=== PATIENT | male | born 1955 | race Caucasian/White ===

== ENCOUNTER 2017-09-07 14:40 | Inpatient (IN) | payer OTHER ==
[~2017-09-07] VITALS: Ht 175.3 cm; Wt 98.5 kg
--- NOTE | 2017-09-07 15:02 | PHYS DOC ---
Past Medical History Past Medical History: Diabetes-Type II, High Cholesterol, Hypertension Past Surgical History: No Surgical History Alcohol Use: None Drug Use: None Adult General Chief Complaint Chief Complaint: ANKLE PROBLEM HPI HPI Patient is a 61 year old -N[place]alese Nepalese male who presents with left ankle pain. He slipped and fell. He states his left ankle was twisted inside and he reached down and straightened it out. He states it was "freaking". He was brought in by EMS and it was splinted. He denies hitting his head or losing consciousness. He denies any hip or knee pain. States his pains only his left ankle. States he has a history of hypertension and diabetes. States his primary care physicians Dr. Lutz. Review of Systems Review of Systems Constitutional: Denies fever or chills [] Eyes: Denies change in visual acuity, redness, or eye pain [] HENT: Denies nasal congestion or sore throat [] Respiratory: Denies cough or shortness of breath [] Cardiovascular: No additional information not addressed in HPI [] GI: Denies abdominal pain, nausea, vomiting, bloody stools or diarrhea [] : Denies dysuria or hematuria [] Musculoskeletal: Denies back pain, positive for left ankle pain. Integument: Denies rash or skin lesions [] Neurologic: Denies headache, focal weakness or sensory changes [] Endocrine: Denies polyuria or polydipsia [] Current Medications Current Medications Current Medications Medications (Trade) Dose Ordered Sig/Ksenia Start Time Stop Time Status Last Admin Dose Admin Acetaminophen/ Hydrocodone Bitart (Lortab 5/325) 2 tab 1X ONCE 09/07/17 16:45 09/07/17 16:46 DC 09/07/17 16:52 2 TAB Morphine Sulfate 2 mg PRN Q2HR PRN 09/07/17 17:45 09/08/17 17:44 Ondansetron HCl (Zofran) 4 mg PRN Q8HRS PRN 09/07/17 17:45 09/08/17 17:44 Allergies Allergies Allergies Coded Allergies Type Severity Reaction Last Updated Verified No Known Drug Allergies 07/25/15 No Physical Exam Physical Exam Constitutional: Well developed, well nourished, no acute distress, non-toxic appearance. [] HENT: Normocephalic, atraumatic, bilateral external ears normal, oropharynx moist, no oral exudates, nose normal. [] Eyes: PERRLA, EOMI, conjunctiva normal, no discharge. [] Neck: Normal range of motion, no tenderness, supple, no stridor. [] Cardiovascular:Heart rate regular rhythm, no murmur [] Lungs & Thorax: Bilateral breath sounds clear to auscultation [] Abdomen: Bowel sounds normal, soft, no tenderness, no masses, no pulsatile masses. [] Skin: Warm, dry, no erythema, no rash. [] Back: No tenderness, no CVA tenderness. [] Extremities: Tender palpation with swelling over the left ankle, skin abrasion over the medial left malleolus, no cyanosis, no clubbing, ROM intact, no edema. Dorsal pedis pulse on left lower show many 2+, sensation intact to light touch over all toes. Neurologic: Alert and oriented X 3, normal motor function, normal sensory function, no focal deficits noted. [] Psychologic: Affect normal, judgement normal, mood normal. [] Current Patient Data Vital Signs Vital Signs Date Time Temp Pulse Resp B/P (MAP) Pulse Ox O2 Delivery O2 Flow Rate FiO2 09/07/17 16:52 16 98 Room Air 09/07/17 15:40 86 183/84 (117) 09/07/17 14:40 97.7 97.7 EKG EKG [] Radiology/Procedures Radiology/Procedures 3 views of the left ankle showed bimalleolar fractures, no foreign bodies or other breaks identified, as interpreted by me. Impressions: Left ankle fracture htn Diabetes Course & Med Decision Making Course & Med Decision Making Pertinent Labs and Imaging studies reviewed. (See chart for details) Spoke with Dr. Salmeron with orthopedic surgery who is okay with the patient be put in a posterior/U splint and if able to tolerate to be discharged home and she will fix it as an outpatient. He was able to ambulate however x-ray shows deviation to the lateral aspect of the ankle and Dr. Salmeron recommends fixing it sooner than later. Patient states he would rather get it fixed sooner and is agreeable to being put in the hospital but thinks tomorrow. Patient being admitted to Dr. Su in stable condition at this time. Dragon Disclaimer Dragon Disclaimer This electronic medical record was generated, in whole or in part, using a voice recognition dictation system. Departure Departure Impression: Primary Impression: Ankle fracture, bimalleolar, closed Disposition: 09 ADMITTED INPATIENT Admitting Physician: Viraj Su Condition: STABLE Problem Qualifiers Primary Impression: Ankle fracture, bimalleolar, closed Encounter type: initial encounter Laterality: left Qualified Codes: S82.842A - Displaced bimalleolar fracture of left lower leg, initial encounter for closed fracture JERMAINE VALLEJO MD Sep 07, 2017 15:02
[2017-09-07] MEDS ORDERED: HYDROcodone/APAP 5/325MG 1 TAB TABLET PO ONE (16:45)
[2017-09-07 19:01] LABS: BASO % 0 % (0-3); EOS % 0 % (0-3); HEMATOCRIT 41.2 % (39.0-53.0); HEMOGLOBIN 13.4 g/dL (13.0-17.5); LYMPH # 1.3 x10^3/uL (1.0-4.8); LYMPH % 14 % (24-48); MEAN CORPUSCULAR HEMOGLOBIN 28 pg (25-35); MEAN CORPUSCULAR HGB CONC 33 g/dL (31-37); MEAN CORPUSCULAR VOLUME 85 fL (79-100); MONO % 5 % (0-9); NEUT % 81 % (31-73); PLATELET COUNT 272 x10^3/uL (140-400); RED BLOOD COUNT 4.85 x10^6/uL (4.30-5.70); RED CELL DISTRIBUTION WIDTH 15.7 % (11.5-14.5); WHITE BLOOD COUNT 9.8 x10^3/uL (4.0-11.0)
[2017-09-07 19:15] LABS: CREATININE 1.2 mg/dL (0.7-1.3); GFR 61.1
[2017-09-07 19:21] LABS: ALBUMIN 4.4 g/dL (3.4-5.0); ALBUMIN/GLOBULIN RATIO 1.1 (1.0-1.7); TOTAL BILIRUBIN 0.3 mg/dL (0.2-1.0); TOTAL PROTEIN 8.3 g/dL (6.4-8.2)
[2017-09-07 19:59] VITALS: BP 149/61
[2017-09-07] MEDS: MORPHINE SULFATE 2 MG/ML DISP.SYRIN. IV PRN (21:18)
[2017-09-07] MEDS: ONDANSETRON PF 4 MG/2 ML VIAL. IV PRN (21:18)
[2017-09-07 23:59] VITALS: BP 146/72
[2017-09-08] VITALS (12 sets, daily range): BP systolic 132–158; BP diastolic 58–87
[2017-09-08] MEDS: MORPHINE SULFATE 2 MG/ML DISP.SYRIN. IV PRN (02:12)
[2017-09-08] MEDS: MORPHINE SULFATE 4 MG/ML DISP.SYRIN. IV PRN ×4 (03:46→22:13)
[2017-09-08] MEDS: ONDANSETRON PF 4 MG/2 ML VIAL. IV PRN (03:46)
--- NOTE | 2017-09-08 07:39 | PDOC2 ---
CONSULT Date of Consult Date of Consult DATE: 09/08/17 TIME: 07:34 Reason for Consult Reason for Consult: left ankle fracture Identification/Chief Complaint Chief Complaint left ankle pain Problems: Source Source: Chart review, Patient History of Present Illness Reason for Visit: The patient is a pleasant 61 year old male who fell and twisted his ankle yesterday. It sounds like he was dislocated and relocated it himself prior to coming to the ER. Xrays in the ER revealed a bimalleolar ankle fracture with widening of the ankle mortise and lateral translation of the talus. He was placed in a splint and admitted for operative fixation. He is diabetic,and has a history of htn and hld. Past Medical History Cardiovascular: HTN Endocrine: Diabetes Past Surgical History Past Surgical History: No pertinent history Family History Family History noncontributory Social History No ALCOHOL: none Drugs: None Current Problem List Problem List Problems Medical Problems: (1) Ankle fracture, bimalleolar, closed Status: Acute Current Medications Current Medications Current Medications Acetaminophen/ Hydrocodone Bitart (Lortab 5/325) 2 tab 1X ONCE PO Last administered on 09/07/17 16:52; Start 09/07/17 at 16:45; Stop 09/07/17 at 16:46 ; Status DC Ondansetron HCl (Zofran) 4 mg PRN Q8HRS PRN IV NAUSEA/VOMITING Last administered on 09/08/17 03:46; Start 09/07/17 at 17:45; Stop 09/08/17 at 17:44 Morphine Sulfate 2 mg PRN Q2HR PRN IV PAIN Last administered on 09/08/17 02:12 ; Start 09/07/17 at 17:45; Stop 09/08/17 at 17:44 Morphine Sulfate 4 mg PRN Q2HR PRN IV PAIN Last administered on 09/08/17 03:46 ; Start 09/08/17 at 03:45 Allergies Allergies: Coded Allergies: No Known Drug Allergies (Unverified , 07/25/15) ROS General: No: Chills, Night Sweats, Fatigue, Malaise, Appetite, Other Musculoskeletal: Yes Gait Disturbance, Yes Joint Pain, Yes Joint Swelling, Yes Muscle Pain Physical Exam General: Alert, Oriented X3, Cooperative, No acute distress MUSCULOSKELETAL: Other (LLE in splint. skin intact, swelling distally. ttp over the medial and lateral malleoli. grossly nvi distally. 2+ dp. ) Vitals VITALS Vital Signs Date Time Temp Pulse Resp B/P (MAP) Pulse Ox O2 Delivery O2 Flow Rate FiO2 09/08/17 04:16 20 95 Room Air 09/08/17 03:58 98.2 82 146/82 (103) 98.2 Labs Labs Laboratory Tests Test 09/07/17 18:56 09/07/17 23:12 White Blood Count 9.8 x10^3/uL (4.0-11.0) Red Blood Count 4.85 x10^6/uL (4.30-5.70) Hemoglobin 13.4 g/dL (13.0-17.5) Hematocrit 41.2 % (39.0-53.0) Mean Corpuscular Volume 85 fL (79-100) Mean Corpuscular Hemoglobin 28 pg (25-35) Mean Corpuscular Hemoglobin Concent 33 g/dL (31-37) Red Cell Distribution Width 15.7 % (11.5-14.5) Platelet Count 272 x10^3/uL (140-400) Neutrophils (%) (Auto) 81 % (31-73) Lymphocytes (%) (Auto) 14 % (24-48) Monocytes (%) (Auto) 5 % (0-9) Eosinophils (%) (Auto) 0 % (0-3) Basophils (%) (Auto) 0 % (0-3) Neutrophils # (Auto) 7.9 x10^3uL (1.8-7.7) Lymphocytes # (Auto) 1.3 x10^3/uL (1.0-4.8) Monocytes # (Auto) 0.5 x10^3/uL (0.0-1.1) Eosinophils # (Auto) 0.0 x10^3/uL (0.0-0.7) Basophils # (Auto) 0.0 x10^3/uL (0.0-0.2) Sodium Level 142 mmol/L (136-145) Potassium Level 4.0 mmol/L (3.5-5.1) Chloride Level 103 mmol/L (98-107) Carbon Dioxide Level 28 mmol/L (21-32) Anion Gap 11 (6-14) Blood Urea Nitrogen 23 mg/dL (8-26) Creatinine 1.2 mg/dL (0.7-1.3) Estimated GFR (Cockcroft-Gault) 61.1 BUN/Creatinine Ratio 19 (6-20) Glucose Level 104 mg/dL (70-99) Calcium Level 10.0 mg/dL (8.5-10.1) Total Bilirubin 0.3 mg/dL (0.2-1.0) Aspartate Amino Transf (AST/SGOT) 19 U/L (15-37) Alanine Aminotransferase (ALT/SGPT) 29 U/L (16-63) Alkaline Phosphatase 65 U/L (46-116) Total Protein 8.3 g/dL (6.4-8.2) Albumin 4.4 g/dL (3.4-5.0) Albumin/Globulin Ratio 1.1 (1.0-1.7) Glucose (Fingerstick) 97 mg/dL (70-99) Laboratory Tests Test 09/07/17 18:56 09/07/17 23:12 White Blood Count 9.8 x10^3/uL (4.0-11.0) Red Blood Count 4.85 x10^6/uL (4.30-5.70) Hemoglobin 13.4 g/dL (13.0-17.5) Hematocrit 41.2 % (39.0-53.0) Mean Corpuscular Volume 85 fL (79-100) Mean Corpuscular Hemoglobin 28 pg (25-35) Mean Corpuscular Hemoglobin Concent 33 g/dL (31-37) Red Cell Distribution Width 15.7 % (11.5-14.5) Platelet Count 272 x10^3/uL (140-400) Neutrophils (%) (Auto) 81 % (31-73) Lymphocytes (%) (Auto) 14 % (24-48) Monocytes (%) (Auto) 5 % (0-9) Eosinophils (%) (Auto) 0 % (0-3) Basophils (%) (Auto) 0 % (0-3) Neutrophils # (Auto) 7.9 x10^3uL (1.8-7.7) Lymphocytes # (Auto) 1.3 x10^3/uL (1.0-4.8) Monocytes # (Auto) 0.5 x10^3/uL (0.0-1.1) Eosinophils # (Auto) 0.0 x10^3/uL (0.0-0.7) Basophils # (Auto) 0.0 x10^3/uL (0.0-0.2) Sodium Level 142 mmol/L (136-145) Potassium Level 4.0 mmol/L (3.5-5.1) Chloride Level 103 mmol/L (98-107) Carbon Dioxide Level 28 mmol/L (21-32) Anion Gap 11 (6-14) Blood Urea Nitrogen 23 mg/dL (8-26) Creatinine 1.2 mg/dL (0.7-1.3) Estimated GFR (Cockcroft-Gault) 61.1 BUN/Creatinine Ratio 19 (6-20) Glucose Level 104 mg/dL (70-99) Calcium Level 10.0 mg/dL (8.5-10.1) Total Bilirubin 0.3 mg/dL (0.2-1.0) Aspartate Amino Transf (AST/SGOT) 19 U/L (15-37) Alanine Aminotransferase (ALT/SGPT) 29 U/L (16-63) Alkaline Phosphatase 65 U/L (46-116) Total Protein 8.3 g/dL (6.4-8.2) Albumin 4.4 g/dL (3.4-5.0) Albumin/Globulin Ratio 1.1 (1.0-1.7) Glucose (Fingerstick) 97 mg/dL (70-99) Images Images Xrays of the left ankle reveal a bimalleolar ankle fracture with widening of the ankle mortise and lateral translation of the talus. Assessment/Plan Assessment/Plan The patient is a 61 year old male who presented to the ER after a fall and twisting to his left ankle. He has sustained a left bimalleolar ankle fracture. I discussed with the patient the risks and benefits of open reduction internal fixation of his ankle. He agreed to proceed with operative fixation NWB LLE after surgery pain control dvt ppx bowel regimen will check vitamin D level. ASYA RIDLEY MD Sep 08, 2017 07:39
[2017-09-08] MEDS ORDERED: fentaNYL PF VIAL 100 MCG/2 ML VIAL IV PRN ×2 (07:45)
[2017-09-08] MEDS ORDERED: HYDROmorphone 2 MG/ML VIAL IV PRN (07:45)
[2017-09-08] MEDS ORDERED: MORPHINE SULFATE 2 MG/ML DISP.SYRIN. IV PRN (07:45)
[2017-09-08] MEDS ORDERED: ONDANSETRON PF 4 MG/2 ML VIAL. IV PRN (07:45)
[2017-09-08] MEDS ORDERED: LIDOCAINE 1% PF 2 ML VIAL. ID PRN (07:45)
[2017-09-08] MEDS ORDERED: PROCHLORPERAZINE 10 MG/2 ML VIAL. IV PRN (07:45)
[2017-09-08 08:12] LABS: BASO % 1 % (0-3); EOS % 0 % (0-3); HEMATOCRIT 40.3 % (39.0-53.0); HEMOGLOBIN 13.2 g/dL (13.0-17.5); LYMPH # 1.6 x10^3/uL (1.0-4.8); LYMPH % 26 % (24-48); MEAN CORPUSCULAR HEMOGLOBIN 28 pg (25-35); MEAN CORPUSCULAR HGB CONC 33 g/dL (31-37); MEAN CORPUSCULAR VOLUME 85 fL (79-100); MONO % 8 % (0-9); NEUT % 65 % (31-73); PLATELET COUNT 259 x10^3/uL (140-400); RED BLOOD COUNT 4.76 x10^6/uL (4.30-5.70); RED CELL DISTRIBUTION WIDTH 15.3 % (11.5-14.5); WHITE BLOOD COUNT 6.3 x10^3/uL (4.0-11.0)
[2017-09-08 08:31] LABS: CALCIUM 9.7 mg/dL (8.5-10.1); CREATININE 1.1 mg/dL (0.7-1.3); GFR 67.6; POTASSIUM 3.7 mmol/L (3.5-5.1)
[2017-09-08] MEDS ORDERED: BUPIVACAINE-EPI 0.5%-1:200000 50 ML VIAL. ONE (08:41)
[2017-09-08 09:31] LABS: INR 1.2 (0.8-1.1); PROTHROMBIN TIME PATIENT 14.2 SEC (11.7-14.0)
[2017-09-08] MEDS ORDERED: SEVOFLURANE > 120 MINUTES. IH ONE (09:31)
[2017-09-08] MEDS ORDERED: ONDANSETRON PF 4 MG/2 ML VIAL. ONE (09:32)
[2017-09-08] MEDS ORDERED: MIDAZOLAM HCL/PF 2 MG/2 ML VIAL. ONE (09:32)
[2017-09-08] MEDS ORDERED: KETOROLAC 30 MG/ML INJ FOR OR. INJ ONE (09:32)
[2017-09-08] MEDS ORDERED: fentaNYL PF VIAL 100 MCG/2 ML VIAL ONE ×2 (09:32→10:39)
[2017-09-08] MEDS ORDERED: DEXAMETHASONE SOD PHOS 20 MG/5 ML VIAL. ONE (09:32)
[2017-09-08] MEDS ORDERED: PROPOFOL 20 ML IV ONE (09:32)
[2017-09-08] MEDS ORDERED: LIDOCAINE 2% PF Vial for OR 5 ML VIAL. ONE (09:33)
[2017-09-08] MEDS: IV RINGERS,LACTATED 1000ML 1,000 ML IV SCH ×2 (09:37→12:05)
--- NOTE | 2017-09-08 09:45 | PDOC4 ---
Operative Note Operative Note DATE OF OPERATION: 09/08/2017 PREOPERATIVE DIAGNOSIS:Bimalleolar fracture left ankle ICD10: S82.842A POSTOPERATIVE DIAGNOSIS: same OPERATION PERFORMED: Open reduction and internal fixation of left lateral and medial malleolus with syndesmotic fixation, CPT 68521 SURGEON: Asya Ridley MD PRINT PRODUCTION MANAGER: none ANESTHESIA: General ESTIMATED BLOOD LOSS: minimal IMPLANTS: Willy Variax 5 hole distal fibula locking plate, 2 50mm x 4.0 mm syndesmotic screws , 2 50mm x 4.0 mm cannulated medial malleolar screws Total tourniquet time: 56 minutes INDICATION: The patient is a 61 year old male who fell down sustaining a fracture dislocation to the left ankle.He himself closed reduced the fracture and was splinted in the ER. He had a biimalleolar fracture with a widened mortise and lateral translation of the talus.After the risks and benefits of surgery were explained, he was taken to surgery for operative stabilization of the fracture today. DESCRIPTION OF PROCEDURE: The patient was identified, marked, and the procedure was reconfirmed by myself prior to taking them to the operating room. IV antibiotics were given preoperatively. The patient was positioned appropriately supine on the operating bed, and a timeout was performed prior to prepping and draping. A non-sterile tourniquet was applied to the left thigh. The leg was prepped and draped in a standard sterile fashion. After exsanguinating the leg with an eschmarch, the tourniquet was inflated to 250 mmHg. I approached the fibula directly centered on the fracture site with a posterolateral approach longitudinally. Dissection was carried down identifying the proximal portion of the peroneal tendon. I dissected just anterior to that muscle belly and exposed the fibula fracture longitudinally. This was basically a short oblique fracture in the distal fibula. The fracture site was debrided of hematoma, and I brought the fracture out to length and held the reduction with AO clamps until I obtained good overall position and yazidism of length both by direct visualization and fluroscopic guidance. I then placed a 5-hole plate across the area. I placed a cortical screw proximal to the fracture and filled the locking holes distal to the fracture. The proximal aspect of the plate was then filled with locking screws. The fracture was stabilized at this point and xrays were taken to reveal near anatomic alignment on both AP and Lateral views. The fibula was out to length on the mortise view of the ankle. I performed an anteromedial approach to the ankle joint, and dissected down protecting the saphenous vein and nerve structures anteriorly. I incised the periosteum vertically and entered the ankle joint anteromedially. The transverse medial malleolar fracture was then visualized. I used a periosteal elevator to expose the fracture margins. The medial malleolus fragment was decent sized and I placed a k-wire to manipulate it into an anatomically reduced position. It was held there with a bone forceps. Another guidewire was placed posteriorly and divergently. I was then was able to overdrill and stabilize the fracture nicely with two 4.0 cannulated screws of 50 mm length. There was good rotational stability as well. Anatomic reduction was obtained. At that time I approached the lateral side of the joint. A large periarticular reduction clamp was placed over the tibia and fibula with the foot in maximal dorsiflexion. Two 50mm x 4.0 mm screws were placed through the plate across the syndesmosis into the tibia. Overall appearance of the ankle mortise was anatomic at that point. I then irrigated the wounds, closed the deep tissues with 2-0 Vicryl laterally and the skin with 3-0 monocryl and corinna. The medial incision was closed with 3-0 monocryl and corinna. Both incisions were infiltratated with 0.5% marcaine with epi. The incisions were covered with sterile dressings, and the patient was placed in a well padded posterior molded splint. The patient tolerated the procedure well. There were no complications. They were taken to recovery in good condition postoperatively. Plan: The patient is to remain non-weightbearing on the LLE. They will follow up in my office in 7-10 days for suture/ staple removal. dvt ppx ASYA RIDLEY MD Sep 08, 2017 09:45
--- NOTE | 2017-09-08 09:47 | RAD ---
Left ankle, 3 views, 09/07/2017, 307.: History: Ankle pain, injury There is a transverse fracture of the medial malleolus with mild lateral displacement of the major distal fracture fragment. There is an oblique fracture of the distal fibula with mild lateral and posterior displacement of the major distal fracture fragment. The talus is subluxed laterally relative to the distal tibia. There is moderate overlying soft tissue swelling. IMPRESSION: Bimalleolar fracture/subluxation of the left ankle.
--- NOTE | 2017-09-08 09:48 | RAD ---
Left ankle, 3 views, 09/07/2017, 5:21 PM: History: Postreduction evaluation Comparison is made to a study of earlier the same day. A radiopaque cast is now in place. The mildly displaced fractures of the medial and lateral malleolus are unchanged in position. There is residual lateral subluxation of the talus relative to the distal tibia, also unchanged.
--- NOTE | 2017-09-08 10:22 | PDOC ---
Provider Note Provider Note Patient seen. History and Physical dictated. See dictation# [id number]. NANCY JIANG MD Sep 08, 2017 10:22
[2017-09-08] MEDS ORDERED: ESMOLOL 100 MG/10 ML VIAL. IV ONE (10:26)
[2017-09-08] MEDS ORDERED: SAXA1TBM3 PO (10:50)
[2017-09-08] MEDS ORDERED: REPA2TAB PO (10:50)
[2017-09-08] MEDS ORDERED: CRESTOR5 MG PO (10:50)
[2017-09-08] MEDS ORDERED: LOSA1TAB19 PO (10:50)
--- NOTE | 2017-09-08 10:52 | HP ---
ADMIT DATE: 09/08/2017 ADMITTING PHYSICIAN: Dr. Lee. PRIMARY CARE PHYSICIAN: Dr. Barr. REASON FOR ADMISSION: Fall with left ankle pain. HISTORY OF PRESENT ILLNESS: This is a 61-year-old -[place] male, fell yesterday when he slipped, and his left ankle was twisted inside, and he reached out and straightened it out. The patient denies any head trauma, dyspnea, palpitations, dizziness, loss of consciousness or any other injuries. The patient was brought to the Emergency Room, the patient was noted to have a left ankle fracture. He was in severe pain, and it was decided to go ahead and do open reduction and internal fixation today. He was noted to have displaced bimalleolar fracture of the left ankle. REVIEW OF SYSTEMS: At present time, other than ankle pain, he is feeling fine. Other systems reviewed and are negative. PAST MEDICAL HISTORY: Positive for diabetes, hypertension and hyperlipidemia. PAST SURGICAL HISTORY: None. FAMILY HISTORY: Positive for diabetes. SOCIAL HISTORY: No history of smoking, alcoholism or drug abuse. MEDICATIONS: The patient does not know his medications. He will have to call his pharmacy to get the names and doses of the medications. ALLERGIES: None known any. PHYSICAL EXAMINATION: VITAL SIGNS: Temperature 98.2, pulse 82 per minute, respirations 18 per minute, blood pressure 146/82 mm Hg, maximum temperature was 99.1. GENERAL: The patient is alert, oriented, not in acute distress. EYES: Pupils equal, reacting to light. Conjunctivae pale. Sclerae muddy. THROAT: Clear. NECK: Supple. JVP normal. No thyromegaly. LUNGS: Clear. CARDIOVASCULAR SYSTEM: S1, S2 regular. ABDOMEN: Soft, nontender, no guarding, no rigidity. Bowel sounds present. EXTREMITIES: Left ankle in splint. No edema of the legs. CENTRAL NERVOUS SYSTEM: Alert, oriented, moves all extremities. LABORATORY DATA: WBC count 9.8 and then 6.3 today, hemoglobin 13.4, platelet count 272,000. Sodium 142, potassium 4, BUN 23, creatinine 1.2, glucose 104, calcium 10, potassium 3.7, albumin 4.4, total protein 8.3. IMPRESSION: 1. Left ankle fracture, displaced bimalleolar fracture. The patient is going to undergo open reduction and internal fixation today. The patient was seen in the preoperative area. 2. Diabetes mellitus type 2. 3. Hypertension. 4. Hyperlipidemia. PLAN: Surgery as noted earlier today. Consultation has been obtained with Dr. Salmeron. The patient is going to stay here today. Blood sugar is 104 and 117, so continue to monitor for diabetes. Obtain the list and resume his home medications. For details, please refer to the orders. Follow up by Dr. Lee tomorrow. NANCY JIANG MD DR: SARAH/eugenia JOB#: [id number] / [id number] glenn BARR DR
[2017-09-08] MEDS: REPAGLINIDE 0.5 MG TABLET PO SCH ×2 (11:30→16:44)
--- NOTE | 2017-09-08 12:23 | RAD ---
Left ankle, 2 views, 09/08/2017: History: Postop evaluation Comparison is made to yesterday's study. The current images are obtained through a partially radiopaque splint. A metallic plate with multiple screws has been placed transfixing the distal fibular fracture. 2 long screws extend into the distal tibia. There are 2 screws transfixing the medial malleolar fracture. The fracture fragments appear to be in satisfactory position for healing. The previously noted ankle subluxation has been reduced. IMPRESSION: Satisfactory alignment status post reduction and internal metallic fixation of the bimalleolar ankle fracture/subluxation.
[2017-09-08] MEDS: LOSARTAN POTASSIUM 50 MG TABLET. PO SCH (13:32)
[2017-09-08] MEDS: hydroCHLOROthiazide 12.5 MG CAPSULE PO SCH (13:32)
[2017-09-08] MEDS ORDERED: BENZOCAINE/MENTHOL LOZENGE. PO PRN (16:45)
[2017-09-08] MEDS ORDERED: LINAGLIPTIN 5 MG TABLET PO SCH (17:00)
[2017-09-08] MEDS ORDERED: metFORMIN XR 500 MG TAB.ER.24H PO SCH (17:00)
[2017-09-08] MEDS ORDERED: ATORVASTATIN CALCIUM 20 MG TABLET PO SCH (21:00)
[2017-09-09] MEDS: MORPHINE SULFATE 4 MG/ML DISP.SYRIN. IV PRN ×4 (02:06→09:02)
[2017-09-09 03:00] VITALS: BP 139/83
[2017-09-09 04:04] LABS: BASO % 1 % (0-3); EOS % 0 % (0-3); HEMATOCRIT 35.8 % (39.0-53.0); HEMOGLOBIN 11.8 g/dL (13.0-17.5); LYMPH # 1.8 x10^3/uL (1.0-4.8); LYMPH % 20 % (24-48); MEAN CORPUSCULAR HEMOGLOBIN 28 pg (25-35); MEAN CORPUSCULAR HGB CONC 33 g/dL (31-37); MEAN CORPUSCULAR VOLUME 85 fL (79-100); MONO % 9 % (0-9); NEUT % 71 % (31-73); PLATELET COUNT 252 x10^3/uL (140-400); RED BLOOD COUNT 4.24 x10^6/uL (4.30-5.70); RED CELL DISTRIBUTION WIDTH 15.6 % (11.5-14.5); WHITE BLOOD COUNT 9.1 x10^3/uL (4.0-11.0)
[2017-09-09 04:52] LABS: CALCIUM 9.4 mg/dL (8.5-10.1); CREATININE 1.2 mg/dL (0.7-1.3); GFR 61.1; POTASSIUM 3.8 mmol/L (3.5-5.1)
[2017-09-09 07:00] VITALS: BP 160/83
[2017-09-09] MEDS ORDERED: ASPIRIN ENTERIC COATED 325 MG TABLET.DR. PO SCH (08:00)
[2017-09-09] MEDS: REPAGLINIDE 0.5 MG TABLET PO SCH ×2 (09:01→12:00)
[2017-09-09] MEDS: LOSARTAN POTASSIUM 50 MG TABLET. PO SCH (09:01)
[2017-09-09] MEDS: hydroCHLOROthiazide 12.5 MG CAPSULE PO SCH (09:01)
--- NOTE | 2017-09-09 09:59 | PDOC ---
PROGRESS NOTES Subjective Subjective feels ok except for lt ankle pain Objective Objective Vital Signs Date Time Temp Pulse Resp B/P (MAP) Pulse Ox O2 Delivery O2 Flow Rate FiO2 09/09/17 09:02 16 Room Air 09/09/17 09:01 93 151/84 09/09/17 07:03 93 09/09/17 07:00 98.1 98.1 09/08/17 18:36 2.0 Physical Exam Abdomen: Normal bowel sounds, Soft Heart: Regular rate Extremities: No clubbing General: Alert, Oriented X3, Cooperative, No acute distress Lungs: Clear to auscultation MUSCULOSKELETAL: Other (LLE in splint. skin intact, swelling distally. ttp over the medial and lateral malleoli. grossly nvi distally. 2+ dp. ) Neck: Supple Neuro: Normal speech Psych/Mental Status: Mental status NL Skin: No breakdown COMMENT lt ankle swelling Diagnosis Problem List Problems Medical Problems: (1) Ankle fracture, bimalleolar, closed Status: Acute Assessment Assessment Problems Medical Problems: (1) Ankle fracture, bimalleolar, closed Status: Acute IMPRESSION: 1. Left ankle fracture, displaced bimalleolar fracture. s/p surgery 2. Diabetes mellitus type 2.stable 3. Hypertension. 4. Hyperlipidemia. PLAN: pain control. crutches sugars good home when ok with ortho Problems: Plan Plan of Care Problems Medical Problems: (1) Ankle fracture, bimalleolar, closed Status: Acute Comment Review of Relevant I have reviewed the following items nicola (where applicable) has been applied. Labs Laboratory Tests Test 09/08/17 11:38 09/08/17 16:43 09/09/17 03:45 09/09/17 07:39 Glucose (Fingerstick) 148 mg/dL (70-99) 126 mg/dL (70-99) 101 mg/dL (70-99) White Blood Count 9.1 x10^3/uL (4.0-11.0) Red Blood Count 4.24 x10^6/uL (4.30-5.70) Hemoglobin 11.8 g/dL (13.0-17.5) Hematocrit 35.8 % (39.0-53.0) Mean Corpuscular Volume 85 fL (79-100) Mean Corpuscular Hemoglobin 28 pg (25-35) Mean Corpuscular Hemoglobin Concent 33 g/dL (31-37) Red Cell Distribution Width 15.6 % (11.5-14.5) Platelet Count 252 x10^3/uL (140-400) Neutrophils (%) (Auto) 71 % (31-73) Lymphocytes (%) (Auto) 20 % (24-48) Monocytes (%) (Auto) 9 % (0-9) Eosinophils (%) (Auto) 0 % (0-3) Basophils (%) (Auto) 1 % (0-3) Neutrophils # (Auto) 6.5 x10^3uL (1.8-7.7) Lymphocytes # (Auto) 1.8 x10^3/uL (1.0-4.8) Monocytes # (Auto) 0.8 x10^3/uL (0.0-1.1) Eosinophils # (Auto) 0.0 x10^3/uL (0.0-0.7) Basophils # (Auto) 0.0 x10^3/uL (0.0-0.2) Sodium Level 138 mmol/L (136-145) Potassium Level 3.8 mmol/L (3.5-5.1) Chloride Level 102 mmol/L (98-107) Carbon Dioxide Level 26 mmol/L (21-32) Anion Gap 10 (6-14) Blood Urea Nitrogen 19 mg/dL (8-26) Creatinine 1.2 mg/dL (0.7-1.3) Estimated GFR (Cockcroft-Gault) 61.1 Glucose Level 106 mg/dL (70-99) Calcium Level 9.4 mg/dL (8.5-10.1) Medications Current Medications Aspirin (Ecotrin) 325 mg DAILYWBKFT PO Last administered on 09/09/17 09:00; Start 09/09/17 at 08:00 Atorvastatin Calcium (Lipitor) 20 mg QHS PO ; Start 09/08/17 at 21:00 Cefazolin Sodium 50 ml @ As Directed STK-MED ONCE IV ; Start 09/08/17 at 10:10; Stop 09/08/17 at 10:11; Status DC Cefazolin Sodium/ Dextrose 50 ml @ 100 mls/hr Q8H IV Last administered on 09/09 02:06; Start 09/08/17 at 18:00; Stop 09/09/17 at 02:29; Status DC Esmolol HCl (Brevibloc) 100 mg STK-MED ONCE IV ; Start 09/08/17 at 10:26; Stop 09/08/17 at 10:27; Status DC Fentanyl Citrate (Fentanyl 2ml Vial) 100 mcg STK-MED ONCE .ROUTE ; Start at 10:39; Stop 09/08/17 at 10:40; Status DC Hydrochlorothiazide (Microzide) 12.5 mg DAILY PO Last administered on 09:01; Start 09/08/17 at 11:00 Linagliptin (Tradjenta) 5 mg DAILYWSUP PO ; Start 09/08/17 at 17:00 Losartan Potassium (Cozaar) 50 mg DAILY PO Last administered on 09/09/17 09:01 ; Start 09/08/17 at 11:00 Metformin HCl (Glucophage Xr) 1,000 mg DAILYWSUP PO Last administered on 17:52; Start 09/08/17 at 17:00 Repaglinide (Prandin) 2 mg TIDAC PO Last administered on 09/09/17 09:01; Start 09/08/17 at 11:30 Throat Lozenges (Cepacol Sore Throat Lozenge) 1 jeimy PRN Q2HRS PRN PO SORE THROAT Last administered on 09/08/17 16:44; Start 09/08/17 at 16:45 Vitals/I & O Vital Sign - Last 24 Hours 09/08/17 09/08/17 09/08/17 09/08/17 11:30 11:30 11:45 12:00 Pulse 102 100 103 Resp 20 20 20 B/P (MAP) 170/91 170/89 79/ Pulse Ox 99 95 96 O2 Delivery Mask Nasal Cannula Nasal Cannula O2 Flow Rate 10 2 09/08/17 09/08/17 09/08/17 09/08/17 12:14 12:18 12:36 12:46 Temp 99.6 96.1 99.6 96.1 Pulse 97 98 98 Resp 20 12 B/P (MAP) 152/79 154/82 (106) 158/80 (106) Pulse Ox 96 95 100 O2 Delivery Nasal Cannula Nasal Cannula Room Air O2 Flow Rate 2 09/08/17 09/08/17 09/08/17/8/17 13:01 13:16 13:31 13:32 Pulse 101 100 104 98 B/P (MAP) 146/85 (105) 142/77 (98) 155/58 (90) 154/82 Pulse Ox 98 99 100 O2 Delivery Room Air Room Air Room Air 09/08/17 09/08/17 09/08/17 09/08/17 14:31 15:00 16:01 17:04 Temp 99.5 99.5 Pulse 99 98 101 105 Resp 18 18 B/P (MAP) 148/78 (101) 132/72 (92) 144/86 (105) 142/87 (105) Pulse Ox 99 97 95 94 O2 Delivery Room Air Room Air Room Air Room Air 09/08/17 09/08/17 09/08/17 09/08/17 18:06 18:36 19:00 20:00 Temp 97.9 97.9 Pulse 116 Resp 20 18 B/P (MAP) 133/78 (96) Pulse Ox 92 O2 Delivery Room Air Room Air Room Air O2 Flow Rate 2.0 09/08/17 09/08/17 09/09/17 09/09/17 22:13 23:13 02:06 03:00 Temp 98.1 98.1 Pulse 93 Resp 20 20 20 20 B/P (MAP) 139/83 (101) Pulse Ox 92 92 93 O2 Delivery Room Air Room Air Room Air 09/09/17 09/09/17 09/09/17 09/09/17 04:20 06:33 07:00 07:03 Temp 98.1 98.1 Pulse 88 Resp 20 20 16 20 B/P (MAP) 160/83 (108) Pulse Ox 93 93 94 93 O2 Delivery Room Air Room Air Room Air Room Air 09/09/17 09/09/17 09:01 09:02 Pulse 93 Resp 16 B/P (MAP) 151/84 O2 Delivery Room Air ALVARADO GARCIA MD Sep 09, 2017 09:59
[2017-09-09] MEDS ORDERED: OXYC-328 PO (10:03)
[2017-09-09] MEDS: oxyCODONE/APAP 10/325 1 TAB TABLET PO PRN ×2 (10:38→15:21)
[2017-09-09 11:00] VITALS: BP 176/88
[2017-09-09] MEDS ORDERED: INFLUENZA VAX SCREEN BY RX. MC PRN (11:30)
--- NOTE | 2017-09-09 11:53 | PDOC ---
ORTHO PROGRESS NOTES Subjective The patient is doing ok. sitting up oobtc. Complaining of feeling "tight" in his left leg. Bebo and soft roll loosened with some improvement in symptoms. Post-op Day: 1 (orif left ankle) Procedure left ankle orif Vitals Vital Signs Date Time Temp Pulse Resp B/P (MAP) Pulse Ox O2 Delivery O2 Flow Rate FiO2 09/09/17 10:38 16 Room Air 09/09/17 09:01 93 151/84 09/09/17 07:03 93 09/09/17 07:00 98.1 98.1 09/08/17 18:36 2.0 Labs Laboratory Tests Test 09/07/17 18:56 09/07/17 23:12 09/08/17 05:00 09/08/17 07:37 White Blood Count 9.8 x10^3/uL (4.0-11.0) Red Blood Count 4.85 x10^6/uL (4.30-5.70) Hemoglobin 13.4 g/dL (13.0-17.5) Hematocrit 41.2 % (39.0-53.0) Mean Corpuscular Volume 85 fL (79-100) Mean Corpuscular Hemoglobin 28 pg (25-35) Mean Corpuscular Hemoglobin Concent 33 g/dL (31-37) Red Cell Distribution Width 15.7 % (11.5-14.5) Platelet Count 272 x10^3/uL (140-400) Neutrophils (%) (Auto) 81 % (31-73) Lymphocytes (%) (Auto) 14 % (24-48) Monocytes (%) (Auto) 5 % (0-9) Eosinophils (%) (Auto) 0 % (0-3) Basophils (%) (Auto) 0 % (0-3) Neutrophils # (Auto) 7.9 x10^3uL (1.8-7.7) Lymphocytes # (Auto) 1.3 x10^3/uL (1.0-4.8) Monocytes # (Auto) 0.5 x10^3/uL (0.0-1.1) Eosinophils # (Auto) 0.0 x10^3/uL (0.0-0.7) Basophils # (Auto) 0.0 x10^3/uL (0.0-0.2) Sodium Level 142 mmol/L (136-145) Potassium Level 4.0 mmol/L (3.5-5.1) Chloride Level 103 mmol/L (98-107) Carbon Dioxide Level 28 mmol/L (21-32) Anion Gap 11 (6-14) Blood Urea Nitrogen 23 mg/dL (8-26) Creatinine 1.2 mg/dL (0.7-1.3) Estimated GFR (Cockcroft-Gault) 61.1 BUN/Creatinine Ratio 19 (6-20) Glucose Level 104 mg/dL (70-99) Calcium Level 10.0 mg/dL (8.5-10.1) Total Bilirubin 0.3 mg/dL (0.2-1.0) Aspartate Amino Transf (AST/SGOT) 19 U/L (15-37) Alanine Aminotransferase (ALT/SGPT) 29 U/L (16-63) Alkaline Phosphatase 65 U/L (46-116) Total Protein 8.3 g/dL (6.4-8.2) Albumin 4.4 g/dL (3.4-5.0) Albumin/Globulin Ratio 1.1 (1.0-1.7) Glucose (Fingerstick) 97 mg/dL (70-99) 117 mg/dL (70-99) Hemoglobin A1c 6.0 % (4.8-5.6) Test 09/08/17 07:43 09/08/17 08:51 09/08/17 11:38 09/08/17 16:43 White Blood Count 6.3 x10^3/uL (4.0-11.0) Red Blood Count 4.76 x10^6/uL (4.30-5.70) Hemoglobin 13.2 g/dL (13.0-17.5) Hematocrit 40.3 % (39.0-53.0) Mean Corpuscular Volume 85 fL (79-100) Mean Corpuscular Hemoglobin 28 pg (25-35) Mean Corpuscular Hemoglobin Concent 33 g/dL (31-37) Red Cell Distribution Width 15.3 % (11.5-14.5) Platelet Count 259 x10^3/uL (140-400) Neutrophils (%) (Auto) 65 % (31-73) Lymphocytes (%) (Auto) 26 % (24-48) Monocytes (%) (Auto) 8 % (0-9) Eosinophils (%) (Auto) 0 % (0-3) Basophils (%) (Auto) 1 % (0-3) Neutrophils # (Auto) 4.1 x10^3uL (1.8-7.7) Lymphocytes # (Auto) 1.6 x10^3/uL (1.0-4.8) Monocytes # (Auto) 0.5 x10^3/uL (0.0-1.1) Eosinophils # (Auto) 0.0 x10^3/uL (0.0-0.7) Basophils # (Auto) 0.0 x10^3/uL (0.0-0.2) Sodium Level 136 mmol/L (136-145) Potassium Level 3.7 mmol/L (3.5-5.1) Chloride Level 99 mmol/L (98-107) Carbon Dioxide Level 27 mmol/L (21-32) Anion Gap 10 (6-14) Blood Urea Nitrogen 17 mg/dL (8-26) Creatinine 1.1 mg/dL (0.7-1.3) Estimated GFR (Cockcroft-Gault) 67.6 Glucose Level 117 mg/dL (70-99) Calcium Level 9.7 mg/dL (8.5-10.1) Prothrombin Time 14.2 SEC (11.7-14.0) Prothromb Time International Ratio 1.2 (0.8-1.1) Activated Partial Thromboplast Time 26 SEC (24-38) Glucose (Fingerstick) 148 mg/dL (70-99) 126 mg/dL (70-99) Test 09/09/17 03:45 09/09/17 07:39 09/09/17 11:27 White Blood Count 9.1 x10^3/uL (4.0-11.0) Red Blood Count 4.24 x10^6/uL (4.30-5.70) Hemoglobin 11.8 g/dL (13.0-17.5) Hematocrit 35.8 % (39.0-53.0) Mean Corpuscular Volume 85 fL (79-100) Mean Corpuscular Hemoglobin 28 pg (25-35) Mean Corpuscular Hemoglobin Concent 33 g/dL (31-37) Red Cell Distribution Width 15.6 % (11.5-14.5) Platelet Count 252 x10^3/uL (140-400) Neutrophils (%) (Auto) 71 % (31-73) Lymphocytes (%) (Auto) 20 % (24-48) Monocytes (%) (Auto) 9 % (0-9) Eosinophils (%) (Auto) 0 % (0-3) Basophils (%) (Auto) 1 % (0-3) Neutrophils # (Auto) 6.5 x10^3uL (1.8-7.7) Lymphocytes # (Auto) 1.8 x10^3/uL (1.0-4.8) Monocytes # (Auto) 0.8 x10^3/uL (0.0-1.1) Eosinophils # (Auto) 0.0 x10^3/uL (0.0-0.7) Basophils # (Auto) 0.0 x10^3/uL (0.0-0.2) Sodium Level 138 mmol/L (136-145) Potassium Level 3.8 mmol/L (3.5-5.1) Chloride Level 102 mmol/L (98-107) Carbon Dioxide Level 26 mmol/L (21-32) Anion Gap 10 (6-14) Blood Urea Nitrogen 19 mg/dL (8-26) Creatinine 1.2 mg/dL (0.7-1.3) Estimated GFR (Cockcroft-Gault) 61.1 Glucose Level 106 mg/dL (70-99) Calcium Level 9.4 mg/dL (8.5-10.1) Glucose (Fingerstick) 101 mg/dL (70-99) 135 mg/dL (70-99) Laboratory Tests Test 09/08/17 16:43 09/09/17 03:45 09/09/17 07:39 09/09/17 11:27 Glucose (Fingerstick) 126 mg/dL (70-99) 101 mg/dL (70-99) 135 mg/dL (70-99) White Blood Count 9.1 x10^3/uL (4.0-11.0) Red Blood Count 4.24 x10^6/uL (4.30-5.70) Hemoglobin 11.8 g/dL (13.0-17.5) Hematocrit 35.8 % (39.0-53.0) Mean Corpuscular Volume 85 fL (79-100) Mean Corpuscular Hemoglobin 28 pg (25-35) Mean Corpuscular Hemoglobin Concent 33 g/dL (31-37) Red Cell Distribution Width 15.6 % (11.5-14.5) Platelet Count 252 x10^3/uL (140-400) Neutrophils (%) (Auto) 71 % (31-73) Lymphocytes (%) (Auto) 20 % (24-48) Monocytes (%) (Auto) 9 % (0-9) Eosinophils (%) (Auto) 0 % (0-3) Basophils (%) (Auto) 1 % (0-3) Neutrophils # (Auto) 6.5 x10^3uL (1.8-7.7) Lymphocytes # (Auto) 1.8 x10^3/uL (1.0-4.8) Monocytes # (Auto) 0.8 x10^3/uL (0.0-1.1) Eosinophils # (Auto) 0.0 x10^3/uL (0.0-0.7) Basophils # (Auto) 0.0 x10^3/uL (0.0-0.2) Sodium Level 138 mmol/L (136-145) Potassium Level 3.8 mmol/L (3.5-5.1) Chloride Level 102 mmol/L (98-107) Carbon Dioxide Level 26 mmol/L (21-32) Anion Gap 10 (6-14) Blood Urea Nitrogen 19 mg/dL (8-26) Creatinine 1.2 mg/dL (0.7-1.3) Estimated GFR (Cockcroft-Gault) 61.1 Glucose Level 106 mg/dL (70-99) Calcium Level 9.4 mg/dL (8.5-10.1) X-Rays xrays of the left ankle reveal well placed hardware, good reduction of the ankle mortise and fractures. Notes LLE in splint. loosened, soft roll split with some resolution of symptoms. grossly nvi distally. Assessment and Plan The patient is POD 1 s/p orif left ankle fracture dislocation -PT/OT: wbat pain control dvt ppx, bowel regimen vitamin D pending, may need supplementation prior to dc. ASYA RIDLEY MD Sep 09, 2017 11:53
[2017-09-09] MEDS ORDERED: FLU VACC QS2017-18 (36MOS+)/PF 0.5 ML SYRINGE. VAX IM ONE (12:00)
--- NOTE | 2017-09-15 21:46 | PDOC ---
Provider Note Provider Note Discharge summary dictated. #[id number] ALVARADO GARCIA MD Sep 15, 2017 21:46
--- NOTE | 2017-09-15 23:50 | DS ---
DATE OF DISCHARGE: 09/09/2017 ATTENDING PHYSICIAN: Dr. Garcia. PRIMARY PHYSICIAN: Dr. Lutz. REASON FOR ADMISSION TO THE HOSPITAL: Ankle fracture. CONSULTATIONS: Dr. Giovanna Salmeron. PROCEDURES DONE: Open reduction and internal fixation of the left lateral and medial malleolar with syndesmotic fixation. HOSPITAL COURSE: The patient is a 61-year-old male fell down sustaining a fracture dislocation to the left ankle, splinted in the Emergency Room. It had a bimalleolar fracture, lateral translation of talus consultation. The patient underwent open reduction and internal fixation of the left lateral and medial malleolus with syndesmotic fixation. The patient did well after surgery and he was discharged nonweight bearing in the left leg with walker and crutches. Follow up in the orthopedic office in 7 days and primary care in 1 week. ALVARADO GARCIA MD DR: JOSEFA/eugenia JOB#: [id number] / [id number] JOSE CRUZ Menendez
== END 2017-09-09 16:30 | disposition home health service (06) | DRG 494 ==
LOC: ER 14:40 → 4 NORTH 17:30
PROVIDERS: ADMIT Internal Medicine; ATTEND Internal Medicine
PROC: 0QSH04Z Reposition Left Tibia with Internal Fixation Device, Open Approach (ICD-10-PCS; 2017-09-08)
PROC: 0QSK04Z Reposition Left Fibula with Internal Fixation Device, Open Approach (ICD-10-PCS; principal; 2017-09-08 10:30)
DX: S82.842A Displaced bimalleolar fracture of left lower leg, initial encounter for closed fracture (principal); I10 Essential (primary) hypertension; W01.0XXA Fall on same level from slipping, tripping and stumbling without subsequent striking against object, initial encounter; E11.9 Type 2 diabetes mellitus without complications; E78.5 Hyperlipidemia, unspecified; E78.00 Pure hypercholesterolemia, unspecified; Y93.89 Activity, other specified; Y92.89 Other specified places as the place of occurrence of the external cause; Y99.8 Other external cause status; Z83.3 Family history of diabetes mellitus
CPT/HCPCS: 29515; 36415; 73600; 73610; 76000; 80048; 80053; 82306; 82962; 83036; 85025; 85610; 85730; 86850; 86900; 86901; 90686; A4215; C1713; J0690; J1100; J1885; J2250; J2270; J2405; J2704; J3010; J3490; J7120; 97116; 99285-25; J2001

== ENCOUNTER 2017-12-10 12:43 | Emergency (ER) | payer OTHER | END 2017-12-10 15:33 | disposition home or self-care (01) | LOC: ER 12:43 | DX: I10 Essential (primary) hypertension (principal); E78.00 Pure hypercholesterolemia, unspecified; E11.9 Type 2 diabetes mellitus without complications; E66.9 Obesity, unspecified; Z79.899 Other long term (current) drug therapy; Z68.32 Body mass index [BMI] 32.0-32.9, adult | CPT/HCPCS: 99281 ==

== ENCOUNTER → 2018-11-17 | Outpatient (CLI) | payer OTHER ==
[2017-12-10 15:33] VITALS: BP 148/85
[~2018-11-17] MED LIST: CRESTOR5 MG PO; LOSA1TAB19 PO; OXYC1TAB22 PO; REPA2TAB PO; SAXA1TBM3 PO
--- NOTE | 2018-11-17 16:43 | KCIC ---
PA and lateral chest x-ray without comparison for productive cough for one month, former smoker. FINDINGS: Heart size is within normal limits. There is prominence of the aortic arch which could be due to ascending aortic ectasia or aneurysm. This could be better evaluated with CTA of the chest. No definite pleural effusion, congestive heart failure, pneumothorax, or focal pneumonic infiltrate. IMPRESSION: 1. No definite acute cardiopulmonary abnormality. 2. Prominence of the aortic arch, possibly representing ascending aortic aneurysm or ectasia. Consider further evaluation with CT of the chest. Electronically signed by: Jeramie Rich MD (11/17/2018 4:39 PM) [id number]
== END | disposition home or self-care (01) ==
LOC: KCIC 15:33
PROVIDERS: ATTEND Family Medicine
DX: R05 Cough (principal); Z87.891 Personal history of nicotine dependence
CPT/HCPCS: 71046

== ENCOUNTER → 2018-11-21 | Outpatient (CLI) | payer MEDICARE, OTHER ==
[2017-12-10 15:33] VITALS: BP 148/85
[~2018-11-21] MED LIST changes: +IOHEXOL 300 MG/ML 100ML VIAL. IV ONE
--- NOTE | 2018-11-24 12:52 | KCIC ---
CTA of the chest with contrast, 11/21/2018: HISTORY: Prominent aortic arch on chest x-ray Multidetector CT imaging was performed following an IV bolus injection of iodinated contrast material. Multiplanar reconstructions were performed as well as 3-D volume rendered reconstructions of the thoracic aorta. There is mild calcific plaquing of the thoracic aorta. There are pulsation type artifacts related to the ascending aorta. The ascending aorta measures 3.7 cm in greatest width. No aortic aneurysm or dissection is seen. The innominate and left common carotid artery share a common origin from the aortic arch. No significant stenosis is seen at the cervicocephalic arterial origins from the arch. Moderate coronary artery calcifications are present. A trace amount of pericardial fluid is noted. No mediastinal or hilar adenopathy is seen. Moderate emphysematous changes are present in the lungs. Minimal pleural thickening over the apices is compatible scarring. There are scattered linear parenchymal scars in the lungs. There is a calcified granuloma in the right lower lobe. Several tiny benign-appearing perifissural nodules are noted bilaterally. There are mild linear and groundglass peripheral opacities posteriorly in both lungs compatible with dependent atelectasis and/or scarring. No pleural fluid is evident. IMPRESSION: 1. Mild calcific plaquing of the thoracic aorta without evidence of aneurysm or dissection. 2. Moderate coronary artery calcifications. 3. Emphysema with bilateral pleural/parenchymal scarring. PQRS Compliance Statement: One or more of the following individualized dose reduction techniques were utilized for this examination: 1. Automated exposure control 2. Adjustment of the mA and/or kV according to patient size 3. Use of iterative reconstruction technique Electronically signed by: Quinton Manjarrez MD (11/24/2018 12:48 PM) [facility]
== END | disposition home or self-care (01) ==
LOC: KCIC CT 12:14
PROVIDERS: ATTEND Family Medicine
DX: J43.9 Emphysema, unspecified (principal); I25.10 Atherosclerotic heart disease of native coronary artery without angina pectoris; J84.10 Pulmonary fibrosis, unspecified
CPT/HCPCS: 71275; 82565; Q9967